=== PATIENT | female | born 1995 ===

== ENCOUNTER 2016-07-24 03:38 | Inpatient (IN) | payer MEDICAID ==
[~2016-07-24] VITALS: Ht 157.5 cm; Wt 62.4 kg
[2016-07-24] VITALS (7 sets, daily range): BP systolic 101–132; BP diastolic 55–95; PULSE 85–153; RESP 15–24; O2SAT 97–100
[~2016-07-24 03:38] MED LIST: INSU100V7 SUBQ; LEVO1TAB66 PO; METO10TA3 PO; NOV100I SUBQ
--- NOTE | 2016-07-24 03:57 | ED.REPORT ---
HPI-General Illness Date of Service Jul 24, 2016 ED Provider: Nicanor Glez MD A 20 year old female with a history of type 1 diabetes, DKA, and depression presents to the ED due to vomiting, abdominal pain, and productive cough. The pt has been feeling ill for two days. She was fatigued two days ago and began vomiting frequently at 13:00 yesterday. She has been unable to eat or drink a significant amount in the last two days and has not taken her Lantus tonight. Nursing Notes Stated Complaint: VOMITING Chief Complaint: FLU/Cold Symptoms Nursing Notes Reviewed: Yes Allergies: Coded Allergies: lactose (Verified Adverse Reaction, Intermediate, 02/13/16) Scheduled Insulin Aspart (NovoLOG U100 Insulin Vial) 100 Unit/Ml Mdv 15-20 UNIT SUBQ TIDAC Insulin Glargine (Lantus U100 Insulin Vial) 100 Unit/Ml Vial 43 UNIT SUBQ QPM Levonorgestrel/Ethinyl Estradiol (Orsythia) 1 Each Tablet 1 TABLET PO DAILY Scheduled PRN Metoclopramide (Metoclopramide) 10 Mg Tablet 10 MG PO QID PRN PRN For Nausea/ Vomiting General Time Seen by MD: 03:57 Chief Complaint Vomiting Hx Obtained From: Patient Arrived By: Walk-in Sudden in Onset?: No Onset Occurred: 2 days ago Symptom Duration: Since onset Recent Healthcare: Recent doctor visit, Recent hospitalization Similar Sx Previous: No Past Medical History Past Medical History dx at 9 years old History of DKA Reports: Diabetes mellitus Reports: Depression Past Surgical History knee surgery Smoking History Unknown if Ever Smoker Social History Alcohol Use: "Social" Drug Use: THC Occupation moved in with cousin. goes to [employer]. lives 1 block away Ambulatory Status Independent Review of Systems decreased food and fluid intake Full Review of Systems Constitutional: Reports: Fatigue Respiratory: Reports: Prod cough, clear GI: Reports: Abdominal pain, Nausea, Vomiting Musculoskeletal: Denies: Back pain, Neck pain Skin: Denies Rash Complete sys rev & neg: except as marked. Physical Exam Vital Signs Vital Signs Date Time Temp Pulse Resp B/P Pulse Ox O2 Delivery O2 Flow Rate FiO2 07/24/16 06:30 36.8 85 18 127/83 97 Room Air 07/24/16 03:45 36.2 153 20 132/95 98 Room Air Initial VS: Reviewed General/Constitutional: Awake, Alert Head / Eyes: Atraumatic, Normocephalic, PERRL, EOMI ENT: Atraumatic, Airway patent Mouth: Positive: Mucous membranes dry Neck: Atraumatic, Supple, Full range of motion Respiratory / Chest: Atraumatic, Breath sounds NL, Breath sounds = bilat breathing deeply tachypneic Cardiovascular: Regular rhythm, Heart sounds NL Heart Rate / Rhythm: Positive: Tachycardia Abdomen: Atraumatic, Soft, Non-tender Back: Atraumatic, Full range of motion Upper Extremities Upper Extremity / MS: Atraumatic, Full range of motion Lower Extremity / Pelvis / MS: Atraumatic, Full range of motion Skin: Atraumatic, Color NL, No rash, Warm, Dry Neurologic: Oriented X3, Speech NL, No motor deficits, No sensory deficits Psychiatric: Affect NL, Mood NL Interpretation & Diagnostics Lab Results Interpretation Result Diagram: 07/24/160 07/24/16 0450 Test 07/24/16 04:50 07/24/16 05:25 White Blood Count 11.1th/mm3 (3.8-10.1) Red Blood Count 5.74mil/mm3 (3.90-5.20) Hemoglobin 17.9g/dL (12.0-15.6) Hematocrit 49.8% (35.0-46.0) Mean Corpuscular Volume 86.8fL (81-100) Mean Corpuscular Hemoglobin 31.2pg (27.0-35.0) Mean Corpuscular Hemoglobin Concent 35.9% (32.0-37.0) Red Cell Distribution Width 12.6% (12.3-15.4) Platelet Count 465bil/L (150-400) Neutrophils (%) (Auto) 71.0% (40-74) Lymphocytes (%) (Auto) 17.5% (14-46) Monocytes (%) (Auto) 9.6% (4-12) Eosinophils (%) (Auto) 0.3% (0-5) Basophils (%) (Auto) 1.1% (0-3) Prothrombin Time 10.5sec (8.1-12.5) Prothromb Time International Ratio 0.98ratio Sodium Level 136mEq/L (134-144) Potassium Level 3.6mEq/L (3.5-5.2) Chloride Level 90mEq/L (97-108) Carbon Dioxide Level 15mmol/L (18-29) Blood Urea Nitrogen 13mg/dL (6-20) Creatinine 0.68mg/dL (0.57-1.00) Estimat Glomerular Filtration Rate 160mL/min (>59) Glucose Level 196mg/dL (60-99) Lactic Acid Level 8.8mmol/L (0.4-2.0) Calcium Level 11.2mg/dL (8.5-10.1) Magnesium Level 1.8mg/dL (1.6-2.6) Total Bilirubin 1.8mg/dL (0.0-1.2) Aspartate Amino Transf (AST/SGOT) 400U/L (0-50) Alanine Aminotransferase (ALT/SGPT) 233U/L (0-32) Alkaline Phosphatase 192U/L (25-150) Total Protein 7.8g/dL (6.4-8.4) Albumin 4.5g/dL (3.4-5.0) Lipase 10U/L (13-60) Ketones Negative (Negative) Hold Means Top Tube Received (Received) Re-Eval/Medical Decision Med Decision/Clinical Course 20-year-old type I diabetic with history of DKA presents with two days of vomiting and dehydration. She has a elevated lactate but not ketones at this point. She is nevertheless fairly acidotic and metabolically deranged, perhaps partly compensated by her continued use of insulin until last night. She has responded clinically to 3 L of fluid IV over the past three hours, and is received a small dose of regular insulin with ongoing sugar monitoring. She will require admission for continued hydration and reestablishment of by mouth intake. Admitted to PCU. Does not require an insulin drip at this point. Hemodynamically stable, with tachycardia now resolved and blood pressure stable. Source of Hx: Old records Counseled Regarding: Diagnosis, Lab results, Need for follow-up, When/why to return to ED Discharge & Departure Primary Impression: DKA (diabetic ketoacidoses) Additional Impressions: Tachycardia Dehydration Vomiting Disposition: Home Discharge Condition All VS Reviewed: Yes Condition: Stable Referrals: [facility] Scribe Attestation Portions of this note were transcribed by Bushra Muñiz. I, Dr. Glez personally performed the history, physical exam and medical decision-making; I reviewed and confirmed the accuracy of the information in the transcribed note. Signed by: Annette Bhatia, 07/24/2016 and 0419. copies to: [facility] Nicanor Glez MD Jul 24, 2016 03:57 BUSHRA MUÑIZ Jul 24, 2016 04:14
[2016-07-24] MEDS ORDERED: 0.9% Sodium Chloride 1,000 ML IV ONE ×2 (04:13→05:55)
[2016-07-24] MEDS ORDERED: 0.9% Sodium Chloride 1,000 ML IV SCH (04:15)
[2016-07-24] MEDS ORDERED: Pantoprazole 4 mg/mL 10 mL Inj IVPUSH ONE (04:15)
[2016-07-24] MEDS ORDERED: Ondansetron 2 mg/mL 2 mL Inj IVPUSH ONE (04:15)
[2016-07-24 05:00] LABS: BASOPHILS % (AUTO) 1.1 % (0-3); EOSINOPHILS % (AUTO) 0.3 % (0-5); MONOCYTES % (AUTO) 9.6 % (4-12); Mean Corpuscular Hemoglobin 31.2 pg (27.0-35.0); Mean Corpuscular Volume 86.8 fL (81-100); Platelet Count 465 bil/L (150-400)
[2016-07-24 05:15] LABS: INR 0.98 ratio
[2016-07-24 05:20] LABS: Lipase 10 U/L (13-60); Magnesium 1.8 mg/dL (1.6-2.6)
[2016-07-24] MEDS ORDERED: Insulin Human REGular 300 Unit/3 mL Inj IV SCH (05:55)
[2016-07-24] MEDS ORDERED: Insulin Human REGular-Omnicell 100 Unit/mL ONE (06:42)
[2016-07-24] MEDS ORDERED: Ondansetron 2 mg/mL 2 mL Inj IVPUSH PRN ×2 (08:10→10:25)
[2016-07-24] MEDS ORDERED: Alum-Mag Hydrox-Simeth 30 mL Suspension PO PRN ×2 (08:10→10:25)
--- NOTE | 2016-07-24 08:12 | ABG ---
DateTimeAnalyzed 08:09:00 -_ pH ____7.365 - pCO2 ___35.1__ -mmHg pO2 ___47.7__ -mmHg HCO3- ___19.6__ -mmol/L ABE ___-4.5__ -mmol/L tHb ___14.5__ -g/dL O2Hb ___82.5__ -% COHb ____1.6__ -% MetHb ____0.7__ -% sO2 ___84.4__ -% FIO2 ___21.0__ -% Drawn By jmw - Date/Time Notified____ 08:11:00 -_ Notified By JMW - Notified Whom DR SINCLAIR - B 748 -mmHg tO2 ___16.7__ -Vol% OrderingPhysicianInitials CR - David test N/A -
[2016-07-24] MEDS: 0.9% Sodium Chloride 1,000 ML IV SCH ×6 (08:21→15:04)
[2016-07-24] MEDS ORDERED: CALC-962 PO (09:35)
--- NOTE | 2016-07-24 09:43 | NUR ---
Admit: Pt admitted with ongoing nausea and vomiting, type 1 diabetic. Reports slight lactose intolerance, "It's only bad if I eat a lot of milk or cheese." Admit completed, med rec completed, allergy sticker in place.
[2016-07-24] MEDS ORDERED: Polyethylene Glycol (PEG) 17 Gm Powder PO PRN (10:25)
[2016-07-24] MEDS ORDERED: Glucose 40% Oral Gel 15 Gm Tube PO PRN (10:25)
[2016-07-24 10:50] LABS: APPEARANCE,URINE CLEAR (CLEAR,HAZY); COLOR,URINE YELLOW (YELLOW); OCCULT BLOOD,URINE SMALL (NEGATIVE)
[2016-07-24 10:51] LABS: UROBILINOGEN,URINE NORMAL (NORMAL)
[2016-07-24] MEDS: Heparin 5,000 Unit/mL Inj SUBQ SCH ×2 (10:57→16:57)
--- NOTE | 2016-07-24 12:05 | PCM.HPMED ---
Subjective Date of Service Jul 24, 2016 Primary Provider: Admitting Physician: David Castellanos MD Primary Care Physician: Ivon Vidales [place] Attending Physician: David Castellanos MD Admit Status: From the Emergency Department, Full Admit, Admit to [facility], [facility] Telemetry Chief Complaint: Depletion nausea vomiting. Lactic acidosis. History of Present Illness: This is a 20-year-old female with a history of diabetes mellitus 1. She has been ill for about 3 days with nausea vomiting but no diarrhea. She has had a slight decrease in the frequency of vomiting and denies any hematemesis. Some abdominal pain and some substernal burning. Again no diarrhea. No abdominal distention or sustained abdominal pain. As a consequence she has had a dramatic decrease in the amount that she has been taking in. She has cats currently decrease the amount of insulin she has been using, stimuli. She presented the activity of progressive weakness, lightheadedness, and being thirsty. There she was found to have evidence of severe find depletion as well as a lactic acidosis and mild hyperglycemia. Her ketones however are negative. Her liver function tests are elevated primarily a transaminitis with a mild hypermobility. She has no known history of liver disease and ultrasound dated reveal evidence of steatohepatitis. She notes she has had a transient elevation of liver functions in the past but no history of gallstones or gallbladder problems. She denies alcohol ingestion. Review of Systems: No headache, visual changes, difficulty hearing. He has she has had some rhinorrhea. Minimal cough. No fevers chills or dyspnea. No rectal bleeding she has decreased her urine output and with a slight change in color of the urine. No hematuria. No flank pain or fevers or chills. Also reviewed and otherwise negative except as noted on the H&P Allergies Coded Allergies: lactose (Verified Adverse Reaction, Intermediate, 02/13/16) Home Medications Scheduled Insulin Aspart (NovoLOG U100 Insulin Vial) 100 Unit/Ml Mdv 15-20 UNIT SUBQ TIDAC Insulin Glargine (Lantus U100 Insulin Vial) 100 Unit/Ml Vial 43 UNIT SUBQ QPM Levonorgestrel/Ethinyl Estradiol (Orsythia) 1 Each Tablet 1 TABLET PO DAILY Scheduled PRN Metoclopramide (Metoclopramide) 10 Mg Tablet 10 MG PO QID PRN PRN For Nausea/ Vomiting PMH 1. DM 1. 2. Transient elevation of liver function tests. Surgical History None Family History Positive for DM 1 Social History Hx Alcohol Use: No Hx Substance Use: Yes (occ marijuana use) Smoking Status: Unknown if Ever Smoker Living Arrangement: Alone Exam Vital Signs Vital Sign - Last Date Time Temp Pulse Resp B/P Pulse Ox O2 Delivery O2 Flow Rate FiO2 07/24/16 09:10 106 07/24/16 08:58 37.0 16 120/89 100 Room Air Intake and Output 07/23/16 07/23/16 07/24/16 Cumulative From/Thru 15:00 23:00 07:00 07/24/16 03:45 - 07/24/16 05:48 Intake Total 3000 ml 3000 ml Balance 3000 ml 3000 ml Intake IV Total 3000 ml 3000 ml Exam Alert oriented 3, no distress. Fluent speech. Normal scalp. Normal nose and ears Anicteric sclera, conjugate gaze Neck supple with normal thyroid and no adenopathy. Lungs are clear with normal effort and rate Heart is regular without murmur gallop or rub. Abdomen is soft and nontender Extremities are free of edema Good radial and pedal pulses. Skin is free of rash, lesions or petechiae. Joints are not swollen or deformed Cranial nerves are intact Motor strength is normal throughout extremities. Normal affect Lab and Diagnostics Result Diagram: 07/24/16 0450 07/24/16 0450 X-Rays, CTs and MRIs Right upper quadrant ultrasound is normal except for steatohepatitis Chest x-ray is clear. Assessment & Plan 1. Severe volume depletion, POA. We will resuscitate her with saline at 250 mils per hour. 2. Lactic acidosis, POA. We will follow serial lactic acid with fluid repletion. 3. DM 1, with mild hyperglycemia. POA. We will fluid resuscitate and use correctional lispro 4. Abnormal liver function tests, POA. We will add a hepatitis C panel and follow these closely. The patient will be admitted to inpatient status for profound Depletion and lactic acidosis and we will expect her to be in hospital for over 2 nights. She is full resuscitation. Pain Evaluation: Adequate Pain Control Resuscitation Status: CPR: Attempt Resuscitation Time spent 45 min David Castellanos MD Jul 24, 2016 12:05
[2016-07-24] MEDS: Insulin LISPRO 300 Unit/3 mL Inj SUBQ SCH ×3 (12:17→21:40)
--- NOTE | 2016-07-24 18:33 | NUR ---
Arrived to unit/Joint pain/Insulin Pt arrived to PCC room 2025 from ED at ~0900 this am. Pt reporting intermittent substernal ache which she reports started prior to admit with vomiting and worsened during vomiting, MD made aware, Pt reported as tolerable. Pt sinus tach in the 100s/110s per information technology analyst. When lactic acid f/u result came back at 1.1, MD notified who slowed NS rate from 250 down to 100mL/Hr, Pt taking PO fluids well. Pt reported bilateral knee/ankle pain after ambulating to the BR, Pt reported as tolerable and resolving once back in bed, MD made aware who instructed to monitor at this time. Pt reports dosing prandial insulin based upon carb counting, spoke with MD, communication order placed allowing Pt to dose own prandial insulin up to 12units, Pt resumed diet, premeal blood sugar for lunch 294, Pt given 15 total insulin lispro units at this time. Pt's premeal blood sugar prior to dinner 463, Pt asymptomatic, Pt given another 15units insulin lispro, Pt reported not having usual insulin glargine HS dose last night, made aware, verbal order written to resume Pt's QHS 43 units insulin glargine dose and Pt's self dosing insulin lispro dose range increased to 14units for subsequent meals.
[2016-07-24] MEDS ORDERED: Insulin GLARgine 100 Unit/mL Syringe SUBQ SCH (20:00)
[2016-07-25] MEDS: Heparin 5,000 Unit/mL Inj SUBQ SCH ×2 (00:10→07:36)
[2016-07-25] MEDS: 0.9% Sodium Chloride 1,000 ML IV SCH ×2 (00:10→09:43)
[2016-07-25 04:17] LABS: EOSINOPHILS % (AUTO) 4.3 % (0-5); MONOCYTES % (AUTO) 8.4 % (4-12); Mean Corpuscular Hemoglobin 31.3 pg (27.0-35.0); Mean Corpuscular Volume 89.4 fL (81-100); NEUTROPHILS % (AUTO) 38.6 % (40-74); Platelet Count 290 bil/L (150-400)
[2016-07-25 04:20] VITALS: BP 103/66; PULSE 95; RESP 16; O2SAT 99
[2016-07-25 04:51] VITALS: PULSE 95
--- NOTE | 2016-07-25 05:01 | NUR ---
Activity/Pain/Blood Sugar Patient independent in the room. Asleep most of the shift, but up to bathroom several times without difficulty or pain. Denies pain. HS blood sugar 210; 1 unit of humalog given per sliding scale along with patient's lantus. Continue to monitor.
[2016-07-25 06:08] LABS: Hepatitis A Antibody IgM Negative (Negative); Hepatitis B Core Antibody IgM Negative (Negative)
[2016-07-25 07:07] LABS: Hemoglobin A1C 11.2 % (4.8-5.6)
[2016-07-25 07:32] VITALS: BP 119/86; PULSE 92; RESP 16; O2SAT 100
[2016-07-25] MEDS: Insulin LISPRO 300 Unit/3 mL Inj SUBQ SCH ×4 (08:28→17:38)
[2016-07-25 09:58] VITALS: PULSE 104
[2016-07-25] MEDS ORDERED: Potassium Chloride 20 mEq SR Tablet PO ONE (10:05)
[2016-07-25 12:00] VITALS: BP 126/85; PULSE 109; RESP 15; O2SAT 100
--- NOTE | 2016-07-25 15:34 | NUR ---
Social Work Note: Screen Note Data& Assessment: EMR reviewed. Patient is a 20 year old female admitted on 07/24/16 for Type one diabetes and Lactic Acidosis. Pt has [facility] for insurance coverage and goes to [facility] for primary care. Pt lives in [place] alone and is independent at baseline. Pt is currently independent in her room. No discharge needs identified at this time. SW to continue to follow if any needs arise. Plan: Anticipated discharge home via POV when medically ready. No discharge needs identified at this time. SW to continue to follow if any needs arise. Sahra Holden, KRISTIN, ACM
[2016-07-25 16:34] VITALS: BP 130/85; PULSE 112; RESP 16; O2SAT 100
--- NOTE | 2016-07-25 16:52 | PCM.DIMED ---
Discharge Instructions Date of Service Jul 25, 2016 Dates of Hospitalization Jul 24, 2016 at 08:20 Discharge Diagnosis Discharge Diagnosis 1. Severe volume depletion,Improved 2. Lactic acidosis, POA. Resolved. 3. DM 1, with mild hyperglycemia. POA. Improved 4. Abnormal liver function tests, POA. Stable 5. Metabolic acidosis, POA. Improving. Diet Diabetic Activity Limited until seen by PCP Call your provider Fever or Chills, Shortness of breath, Vomitting Patient Instructions Please see Dr Lucía Au at [place] in the next 3 days. Please increase the amounts of Humalog that you use by about 10-15% and add an additional 10-15 units of Lantus in the morning. Hydrate yourself with a lot of water and/or electrolyte fluids. David Castellanos MD Jul 25, 2016 16:52
--- NOTE | 2016-07-25 16:57 | PCM.DC.MED ---
Discharge Summary Date of Service Jul 25, 2016 Dates of Hospitalization Date of Hospital Admission Jul 24, 2016 at 08:20 Date of Discharge: Jul 25, 2016 Providers: Admitting Physician: David Castellanos MD Primary Care Physician: Ivon Vidales Attending Physician: David Castellanos MD Diagnosis at Time of Discharge Diagnosis at Time of Discharge 1. Severe volume depletion,Improved 2. Lactic acidosis, POA. Resolved. 3. DM 1, with mild hyperglycemia. POA. Improved 4. Abnormal liver function tests, POA. Stable 5. Metabolic acidosis, POA. Improving. Consultations None Procedures XRay, CTs & MRIs Right upper quadrant ultrasound is normal except for steatohepatitis Chest x-ray is clear. Cardiac Echo Impression None Invasive Procedures None Brief History This is a 20-year-old female with a history of diabetes mellitus 1. She has been ill for about 3 days with nausea vomiting but no diarrhea. She has had a slight decrease in the frequency of vomiting and denies any hematemesis. Some abdominal pain and some substernal burning. Again no diarrhea. No abdominal distention or sustained abdominal pain. As a consequence she has had a dramatic decrease in the amount that she has been taking in. She has cats currently decrease the amount of insulin she has been using, stimuli. She presented the activity of progressive weakness, lightheadedness, and being thirsty. There she was found to have evidence of severe find depletion as well as a lactic acidosis and mild hyperglycemia. Her ketones however are negative. Her liver function tests are elevated primarily a transaminitis with a mild hypermobility. She has no known history of liver disease and ultrasound dated reveal evidence of steatohepatitis. She notes she has had a transient elevation of liver functions in the past but no history of gallstones or gallbladder problems. She denies alcohol ingestion. Hospital Course 1. Severe volume depletion, POA. We will resuscitate her with saline at 250 mils per hour. 2. Lactic acidosis, POA. We will follow serial lactic acid with fluid repletion. 3. DM 1, with mild hyperglycemia. POA. We will fluid resuscitate and use correctional lispro 4. Abnormal liver function tests, POA. We will add a hepatitis C panel and follow these closely. The patient will be admitted to inpatient status for profound Depletion and lactic acidosis and we will expect her to be in hospital for over 2 nights. She is full resuscitation. Hospital course. This is a type I diabetic with poorly controlled diabetes and A1c of about 11.5. She presented with profound volume depletion and a metabolic acidosis with negative ketones and a positive lactic acid she was volume repleted. There is no evidence of infection. She was only mildly hyperglycemic at the time of admission. She did not require an insulin drip. Clinically she resolved her lactic acidosis and improved. She had a fair amount of nausea but no diarrhea. All of these symptoms resolved and she was able to advance her diet. She did have a persistent metabolic acidosis based on her BMP. On the day of discharge she felt very well and her mother had driven up from the [facility] to retrieve her. They were very adamant about discharge home and she agreed to increase the amount of insulin she takes by about 10-15% both with prolonged and short acting insulin as well as to vigorously hydrate. She also agreed to close follow-up. Exam Vital Signs (Last) Date Time Temp Pulse Resp B/P Pulse Ox O2 Delivery O2 Flow Rate FiO2 07/25/16 16:34 36.9 112 16 130/85 100 Room Air Exam She seen and examined on day of discharge Test 07/24/16 04:50 07/24/16 05:25 07/24/16 09:00 07/24/16 10:25 Prothrombin Time 10.5sec (8.1-12.5) Prothromb Time International Ratio 0.98ratio Magnesium Level 1.8mg/dL (1.6-2.6) Lipase 10U/L (13-60) Ketones Negative (Negative) Hold Means Top Tube Received (Received) Urine Color Yellow (YELLOW) Urine Appearance Clear (CLEAR,HAZY) Urine pH 6.0 (5.0-8.0) Urine Specific Bricelyn 1.025 (1.003-1.035) Urine Protein 30mg/dL (NEG,TRACE) Urine Glucose (UA) 500mg/dL (NEGATIVE) Urine Ketones 80mg/dL (NEGATIVE) Urine Occult Blood Small (NEGATIVE) Urine Nitrite Negative (NEGATIVE) Urine Bilirubin Negative (NEGATIVE) Urine Urobilinogen Normalmg/dL (NORMAL) Urine Leukocyte Esterase Negative (NEGATIVE) Urine RBC 0-2/hpf (0-2) Urine WBC 0-5/hpf (0-5) Urine Epithelial Cells Few/hpf (NONE-MOD) Urine Crystals None seen (NONE SEEN) Urine Bacteria None/hpf (NONE-FEW) Urine Hyaline Casts None/lpf (NONE) Urine Granular Casts 5-20 (NONE SEEN) Urine Waxy Casts None seen (NONE SEEN) Urine Red Blood Cell Casts None seen (NONE SEEN) Urine White Blood Cell Casts None seen (NONE SEEN) Urine Mucus None seen (None Seen) Urine Trichomonas None seen (NONE SEEN) Urine Yeast None (NONE SEEN) Urinalysis Comment None Urine Culture Reflexed Not indicated Urine HCG, Qualitative Negative (Negative) Test 07/24/16 12:15 07/25/16 03:50 07/25/16 15:55 Hemoglobin A1c 11.2% (4.8-5.6) Lactic Acid Level 1.1mmol/L (0.4-2.0) Hepatitis A IgM Antibody Negative (Negative) Hepatitis B Surface Antigen Negative (Negative) Hepatitis B Core IgM Antibody Negative (Negative) Hepatitis C Antibody <0.1s/co ratio (0.0-0.9) Hepatitis C Comment Comment (.) White Blood Count 5.4th/mm3 (3.8-10.1) Red Blood Count 4.06mil/mm3 (3.90-5.20) Hemoglobin 12.7g/dL (12.0-15.6) Hematocrit 36.3% (35.0-46.0) Mean Corpuscular Volume 89.4fL (81-100) Mean Corpuscular Hemoglobin 31.3pg (27.0-35.0) Mean Corpuscular Hemoglobin Concent 35.0% (32.0-37.0) Red Cell Distribution Width 12.6% (12.3-15.4) Platelet Count 290bil/L (150-400) Neutrophils (%) (Auto) 38.6% (40-74) Lymphocytes (%) (Auto) 46.1% (14-46) Monocytes (%) (Auto) 8.4% (4-12) Eosinophils (%) (Auto) 4.3% (0-5) Basophils (%) (Auto) 2.0% (0-3) Sodium Level 136mEq/L (134-144) Potassium Level 3.5mEq/L (3.5-5.2) Chloride Level 94mEq/L (97-108) Carbon Dioxide Level 16mmol/L (18-29) Blood Urea Nitrogen 3mg/dL (6-20) Creatinine 0.42mg/dL (0.57-1.00) Estimat Glomerular Filtration Rate 278mL/min (>59) Glucose Level 288mg/dL (60-99) Calcium Level 8.0mg/dL (8.5-10.1) Total Bilirubin 0.6mg/dL (0.0-1.2) Aspartate Amino Transf (AST/SGOT) 560U/L (0-50) Alanine Aminotransferase (ALT/SGPT) 227U/L (0-32) Alkaline Phosphatase 198U/L (25-150) C-Reactive Protein 0.1mg/dL (0.0-0.5) Total Protein 6.1g/dL (6.4-8.4) Albumin 3.5g/dL (3.4-5.0) Discharge Medications Discharge Medications Insulin Aspart (NovoLOG U100 Insulin Vial) 100 Unit/Ml Mdv 15-20 UNIT SUBQ TIDAC Prescribed by: EL ORR MD Insulin Glargine (Lantus U100 Insulin Vial) 100 Unit/Ml Vial 43 UNIT SUBQ QPM ( Reported) As needed Calcium Carbonate/Simethicone (Laura-Mulvane Heartburn+Gas) 750 Mg-80 Mg Tab.chew 1 EACH PO BID PRN PRN For Epigastric Distress (Reported) Metoclopramide (Metoclopramide) 10 Mg Tablet 10 MG PO QID PRN PRN For Nausea/ Vomiting (Reported) Followup Plan Disposition: Home Discharge Diet: Diabetic Discharge Activity: Limited until seen by PCP Patient Instructions Please see Dr Lucía Au at [place] in the next 3 days. Please increase the amounts of Humalog that you use by about 10-15% and add an additional 10-15 units of Lantus in the morning. Hydrate yourself with a lot of water and/or electrolyte fluids. Time spent 40 minutes David Castellanos MD Jul 25, 2016 16:57
--- NOTE | 2016-07-25 18:07 | NUR ---
Discharge Pt very eager to discharge home, Pt discharged home with family at ~1730 after discussing discharge/post-discharge plan with Dr. Castellanos. Pt given discharge educational materials on DKA, lactic acidosis, and dehydration. Pt's IV access D/C'd and intact. Pt instructed to f/u with PCP in the next 3 days. Pt requested blood sugar check prior to discharge and just insulin coverage based upon our sliding scale as Pt unsure of when or how many carbs she would have for dinner. Pt and family verbalized understanding of all discharge instructions. All belongings accompanied Pt at time of discharge.
== END 2016-07-25 17:00 | disposition home or self-care (01) | DRG 641 ==
LOC: SED 03:38 → PCC 08:20
PROVIDERS: ADMIT Hospitalist; ATTEND Hospitalist
DX: E86.0 Dehydration (principal); E10.65 Type 1 diabetes mellitus with hyperglycemia; I10 Essential (primary) hypertension; R74.0 Nonspecific elevation of levels of transaminase and lactic acid dehydrogenase [LDH]; Z79.4 Long term (current) use of insulin

== ENCOUNTER 2016-09-20 04:47 | Inpatient (IN) | payer MEDICAID ==
[2016-09-20] VITALS (12 sets, daily range): BP systolic 109–137; BP diastolic 20–91; PULSE 103–130; RESP 15–28; O2SAT 98–100
[~2016-09-20] VITALS: Ht 157.5 cm; Wt 70.9 kg
[~2016-09-20 04:47] MED LIST changes: +CALC-962 PO; -LEVO1TAB66 PO
[2016-09-20] MEDS ORDERED: 0.9% Sodium Chloride 1,000 ML IV ONE ×2 (05:23→08:00)
[2016-09-20] MEDS ORDERED: Ondansetron 2 mg/mL 2 mL Inj IVPUSH ONE (05:25)
[2016-09-20] MEDS ORDERED: Insulin Human REGular-Omnicell 100 Unit/mL IV ONE (05:25)
[2016-09-20 05:29] LABS: BASOPHILS % (AUTO) 1.7 % (0-3); EOSINOPHILS % (AUTO) 1.6 % (0-5); MONOCYTES % (AUTO) 6.9 % (4-12); Mean Corpuscular Hemoglobin 30.3 pg (27.0-35.0); Mean Corpuscular Volume 91.5 fL (81-100); NEUTROPHILS % (AUTO) 72.5 % (40-74); Platelet Count 467 bil/L (150-400)
[2016-09-20 05:38] LABS: INR 0.9 ratio
[2016-09-20 05:40] LABS: APPEARANCE,URINE CLEAR (CLEAR,HAZY); COLOR,URINE STRAW (YELLOW); OCCULT BLOOD,URINE NEGATIVE (NEGATIVE); UROBILINOGEN,URINE NORMAL (NORMAL)
[2016-09-20 05:59] LABS: Lipase 21 U/L (13-60); Magnesium 2.1 mg/dL (1.6-2.6)
--- NOTE | 2016-09-20 06:06 | ED.REPORT ---
HPI-General Illness Date of Service September 20, 2016 ED Provider: Kimberly Aguilera MD The patient is a 20 year old female w/ a hx of DM type 1 and DKA who presents to the ED due to high blood sugar. She ran out of Lantus at breakfast this morning. Her blood sugars have been running high all week. Her blood sugar at the ED is 941 and blood pH is 7.1. She started a second job this week and hasn' t been able to monitor her blood sugar and insulin as effectively. Pt also reports a sinus infection for the last 3 days. She is unsure if she took her Lantus last night. The pt was last seen at the ED 07/24/16 for similar symptoms. Nursing Notes Stated Complaint: BLOOD SUGAR HIGH/ OUT OF MEDS Chief Complaint: General Complaint Nursing Notes Reviewed: Yes Allergies: Coded Allergies: lactose (Verified Adverse Reaction, Intermediate, 02/13/16) Scheduled Insulin Aspart (NovoLOG U100 Insulin Vial) 100 Unit/Ml Mdv 15-20 UNIT SUBQ TIDAC Insulin Glargine (Lantus U100 Insulin Vial) 100 Unit/Ml Vial 43 UNIT SUBQ QPM Scheduled PRN Calcium Carbonate/Simethicone ([place] Heartburn+Gas) 750 Mg-80 Mg Tab.chew 1 EACH PO BID PRN PRN For Epigastric Distress Metoclopramide (Metoclopramide) 10 Mg Tablet 10 MG PO QID PRN PRN For Nausea/ Vomiting General Time Seen by MD: 06:01 Chief Complaint Other (high blood sugar) Hx Obtained From: Patient Arrived By: Walk-in Sudden in Onset?: Yes Onset Occurred: Just prior to arrival Symptom Duration: Since onset Recent Healthcare: No recent doctor visit, No recent hospitalization Similar Sx Previous: Yes Past Medical History Past Medical History dx at 9 years old History of DKA Reports: Diabetes mellitus Reports: Depression Past Surgical History knee surgery Smoking History Former Smoker Social History Alcohol Use: "Social" Drug Use: THC Other Social History: Good social support, Local resident Occupation moved in with cousin. goes to [employer]. lives 1 [address] away Ambulatory Status Independent Review of Systems high blood sugar Full Review of Systems Ears / Nose / Throat: Reports: Nasal congestion, Sinus problem GI: Reports: Nausea Psychiatric: Reports: Anxiety, Stress Complete sys rev & neg: except as marked. Physical Exam Vital Signs Vital Signs Date Time Temp Pulse Resp B/P Pulse Ox O2 Delivery O2 Flow Rate FiO2 09/20/16 10:50 120 20 125/72 100 Room Air 09/20/16 09:55 130 21 135/20 100 Room Air 09/20/16 08:33 122 21 120/62 99 Room Air 09/20/16 07:15 130 25 137/79 100 Room Air 09/20/16 05:26 125 28 133/68 100 Room Air 09/20/16 04:51 36.0 130 24 126/87 100 Room Air Initial VS: Reviewed Abdomen / GI: Soft, Non-tender, No guarding, No rebound, No distention Back: No CVA tenderness Extremities: Vascular intact, Neuro intact, No swelling, No tenderness Skin: Warm, Dry Neurologic: Alert, Oriented General/Constitutional: Awake, Alert, Cooperative acutely ill Head / Eyes: Normocephalic injected sclera Mouth: Positive: Mucous membranes dry Respiratory / Chest: Breath sounds NL, No rales, No rhonchi, No wheezing kussmaul breathing Heart Rate / Rhythm: Positive: Tachycardia Interpretation & Diagnostics Lab Results Interpretation Result Diagram: 09/20/16 0515 09/20/16 1040 Test 09/20/16 05:15 09/20/16 10:40 White Blood Count 11.2th/mm3 (3.8-10.1) Red Blood Count 5.31mil/mm3 (3.90-5.20) Hemoglobin 16.1g/dL (12.0-15.6) Hematocrit 48.6% (35.0-46.0) Mean Corpuscular Volume 91.5fL (81-100) Mean Corpuscular Hemoglobin 30.3pg (27.0-35.0) Mean Corpuscular Hemoglobin Concent 33.1% (32.0-37.0) Red Cell Distribution Width 12.8% (12.3-15.4) Platelet Count 467bil/L (150-400) Neutrophils (%) (Auto) 72.5% (40-74) Lymphocytes (%) (Auto) 17.0% (14-46) Monocytes (%) (Auto) 6.9% (4-12) Eosinophils (%) (Auto) 1.6% (0-5) Basophils (%) (Auto) 1.7% (0-3) Prothrombin Time 9.6sec (8.1-12.5) Prothromb Time International Ratio 0.90ratio Urine Color Straw (YELLOW) Urine Appearance Clear (CLEAR,HAZY) Urine pH 5.0 (5.0-8.0) Urine Specific [place] 1.010 (1.003-1.035) Urine Protein Negativemg/dL (NEG,TRACE) Urine Glucose (UA) >1000mg/dL (NEGATIVE) Urine Ketones >80mg/dL (NEGATIVE) Urine Occult Blood Negative (NEGATIVE) Urine Nitrite Negative (NEGATIVE) Urine Bilirubin Negative (NEGATIVE) Urine Urobilinogen Normalmg/dL (NORMAL) Urine Leukocyte Esterase Negative (NEGATIVE) Urine RBC 0-2/hpf (0-2) Urine WBC 0-5/hpf (0-5) Urine Epithelial Cells Few/hpf (NONE-MOD) Urine Crystals None seen (NONE SEEN) Urine Bacteria Few/hpf (NONE-FEW) Urine Hyaline Casts None/lpf (NONE) Urine Granular Casts None seen (NONE SEEN) Urine Waxy Casts None seen (NONE SEEN) Urine Red Blood Cell Casts None seen (NONE SEEN) Urine White Blood Cell Casts None seen (NONE SEEN) Urine Mucus Present (None Seen) Urine Trichomonas None seen (NONE SEEN) Urine Yeast None (NONE SEEN) Urinalysis Comment None Urine Culture Reflexed Not indicated Hold Urine Received (Received) Lactic Acid Level 1.7mmol/L (0.4-2.0) Magnesium Level 2.1mg/dL (1.6-2.6) Total Bilirubin 1.9mg/dL (0.0-1.2) Aspartate Amino Transf (AST/SGOT) 183U/L (0-50) Alanine Aminotransferase (ALT/SGPT) 110U/L (0-32) Alkaline Phosphatase 291U/L (25-150) Total Protein 8.3g/dL (6.4-8.4) Albumin 4.4g/dL (3.4-5.0) Lipase 21U/L (13-60) Ketones Positive (Negative) Sodium Level 141mEq/L (134-144) Potassium Level 3.4mEq/L (3.5-5.2) Chloride Level 101mEq/L (97-108) Carbon Dioxide Level 7mmol/L (18-29) Blood Urea Nitrogen 9mg/dL (6-20) Creatinine 0.68mg/dL (0.57-1.00) Estimat Glomerular Filtration Rate 160mL/min (>59) Glucose Level 230mg/dL (60-99) Calcium Level 7.0mg/dL (8.5-10.1) Lab Results Interpretation: pH...7.155 pCO2...13 pO2...132.0 cHOC3...4.4 cBase...-23.8 ECG Interpretation ECG Interpretation: nonspecific T abnormalities Time: 06:00 Interpreted by: ED physician Rhythm / Conduction: Tachycardia (rate 134) Re-Eval/Medical Decision Time of Eval: 07:15 Re-Evaluation/Progress Note: Per nurse, pt's blood sugar is 551. Time of Eval: 11:43 Patient Status: Condition improved Re-Evaluation/Progress Note: Patient remains in the department for staffing purposes. Repeat BMP shows potassium now down to 3.4. CO2 remains quite low. After 6 L of normal saline fluid is switched to normal saline with 20 of potassium at a rate of 250 an hour. Sugar is down to 250 and insulin drip remains per protocol Consultation : Referral / Consult Name: Atif Hdez MD Call Returned at: 07:51 Machine Sneller: Agrees with eval, Agrees with plan Note: Dr. Hdez visits pt in the ED. Case discussed. Counseled Regarding: Diagnosis, Lab results, Need for admission Discharge & Departure Primary Impression: DKA (diabetic ketoacidoses) Diabetes mellitus type: type 1 Diabetes mellitus complication detail: without coma Qualified Code: E10.10 - Type 1 diabetes mellitus with ketoacidosis without coma Additional Impressions: Sinusitis Sinusitis location: unspecified location Chronicity: unspecified Qualified Code: J32.9 - Chronic sinusitis, unspecified Type 1 diabetes mellitus Diabetes mellitus complication status: with unspecified complications Qualified Code: E10.8 - Type 1 diabetes mellitus with unspecified complications Disposition: ADMITTED TO HOSPITAL Discharge Condition All VS Reviewed: Yes Condition: Stable Referrals: [facility] ([facility]) Scribe Attestation Portion of this note were transcribed by Eve Arita. I, Dr. Kimberly Aguilera, personally performed the history, physical exam, and medical decision-making: I reviewed and confirmed the accuracy for the information in the transcribed note. Signed by: urvashi Haines, 09/20/16 0900 copies to: [facility] Kimberly Aguilera MD September 20, 2016 06:06 Eve Arita September 20, 2016 06:09
--- NOTE | 2016-09-20 06:22 | ABG ---
DateTimeAnalyzed 06:18:00 -_ pH ____7.155 - 7.350 7.450 pCO2 ___13.0__ -mmHg 35.0 45.0 pO2 132 -mmHg 69.0 116 HCO3- ____4.4__ -mmol/L 22.0 26.0 ABE __-23.8__ -mmol/L -2.0 2.0 tHb ___14.2__ -g/dL O2Hb ___95.3__ -% COHb ____1.4__ -% MetHb ____0.9__ -% sO2 ___97.5__ -% FIO2 ___21.0__ -% Drawn By LT - Date/Time Notified____ 06:21:00 -_ Notified By LT - Notified Whom DR LAURSEN - B 757 -mmHg tO2 ___19.2__ -Vol% OrderingPhysicianInitials sl - David test _Positive -
[2016-09-20] MEDS ORDERED: Sodium Bicarb (50 mEq) 8.4% 1 mEq/mL 50 mL Syringe IVPUSH ONE (06:35)
[2016-09-20] MEDS ORDERED: 0.9% Sodium Chloride 1,000 ML IV STA ×2 (06:58→07:56)
[2016-09-20] MEDS ORDERED: LidocaineVisc 2%:Antacid 1:1 10 mL Syringe PO STA (07:02)
[2016-09-20] MEDS ORDERED: Insulin Human REGular Inj 100 UNIT in 0.9% Sodium Chloride-Pha MIX 100 ML IV ONE (07:25)
[2016-09-20] MEDS ORDERED: Ondansetron 2 mg/mL 2 mL Inj ONE (09:28)
[2016-09-20] MEDS ORDERED: Senna-Docusate 8.6-50 mg Tablet PO PRN (11:45)
[2016-09-20] MEDS ORDERED: Polyethylene Glycol (PEG) 17 Gm Powder PO PRN (11:45)
[2016-09-20] MEDS ORDERED: Alum-Mag Hydrox-Simeth 30 mL Suspension PO PRN (11:45)
[2016-09-20] MEDS ORDERED: Ondansetron 2 mg/mL 2 mL Inj IVPUSH PRN (11:45)
[2016-09-20 12:09] LABS: Magnesium 1.4 mg/dL (1.6-2.6)
[2016-09-20] MEDS: 0.9% NaCl + KCl 20 mEq/L 1,000 ML IV SCH ×3 (12:16→20:30)
[2016-09-20] MEDS ORDERED: D5W1/2NS 1,000 mL IV PRN (16:15)
[2016-09-20] MEDS ORDERED: Dextrose 10% 250 ML IV PRN (16:35)
--- NOTE | 2016-09-20 17:30 | PCM.HPMED ---
Subjective Date of Service September 20, 2016 Primary Provider: Admitting Physician: Primary Care Physician: Ivon Vidales Attending Physician: Admit Status: From the Emergency Department Chief Complaint: High blood sugar, out of home medication. History of Present Illness: Ms. Raman is a 20-year-old lady with a history of diabetes type 1 and diabetic ketoacidosis who presented to the emergency department with high blood sugar because she ran out of her insulin. Patient moved to the area earlier this year and has been attending [facility]. She states that she recently started a new job which has made monitoring her blood sugar more difficult. She also states that she has not been as consistent with insulin lately and is unsure whether she took her Lantus last night. She admits to poorly controlling her diabetes when she was in her early teens and reports 5-6 prior admission for DKA. Including admission here in February and March of 2016 and July of this year for DKA. Of note, patient has a history of transiently elevated liver enzymes in the past with evidence of steatohepatitis on abdominal ultrasound. She has no known history of liver disease or gallstones. She denies alcohol ingestion. In the ED, vitals were temp vitals 36.0, BP 137/79, HR 130, RR 25, SpO2 100% on room air. Labs: serum glucose was 941, sodium 125, and potassium was 4.9. Anion Gap-38.0 meq/L. ABG ph7.155, pCO2 13.0, pO2 132, HCO3 4.4; wbc 11.2, Hb 16.1, Hct 48.6, plts 467. AST/ALT 183/110 with alk phos 291, lipase 21, lactic acid 1.7. ECG sinus rhythm, rate 134. Nonspecific T abnormalities. She was given 6L of normal saline, started on insulin drip and admitted to the CCU on DKA protocol. Review of Systems: A comprehensive review of systems was conducted with the patient and found to be negative except as above in the History of Present Illness. Allergies Coded Allergies: lactose (Verified Adverse Reaction, Intermediate, 09/20/16) Home Medications Insulin Aspart (NovoLOG) 15-20 UNIT SUBQ TIDAC Insulin Glargine 43 UNIT SUBQ QPM Calcium Carbonate/Simethicone PO BID PRN Metoclopramide 10 MG PO QID PRN PMH Diabetes mellitus, type 1- dx at 9 years old History of DKA Depression Transient elevation of liver function tests. Surgical History Knee surgery Family History Positive for type 1 diabetes. Social History Hx Alcohol Use: No Hx Substance Use: Yes (occ marijuana use) Smoking Status: Former Smoker Living Arrangement: with Family Exam Vital Signs Vital Sign - Last Date Time Temp Pulse Resp B/P Pulse Ox O2 Delivery O2 Flow Rate FiO2 09/20/16 09:55 130 21 135/20 100 Room Air 09/20/16 04:51 36.0 Intake and Output 09/19/16 09/19/16 09/20/16 Cumulative From/Thru 15:00 23:00 07:00 09/20/16 04:51 - 09/20/16 05:19 Intake Total 1000 ml 1000 ml Balance 1000 ml 1000 ml Intake IV Total 1000 ml 1000 ml Exam GENERAL: Well appearing, young female; lying in bed in no acute distress. HEENT: Atraumatic, Normocephalic, PERRL, no scleral icterus. Mucous membranes moist. NECK: Supple, nontender, no lymphadenopathy or masses. RESPIRATORY: Breath sounds normal, no signs of respiratory distress, lungs clear to auscultation. CARDIOVASCULAR: Regular rate and rhythm without murmurs, rubs or gallops heard. ABDOMEN: Soft, nondistended, nontender, bowel tones active. EXTREMITIES: Non-tender, no obvious deformity, no edema, cyanosis or pallor. SKIN: Warm, dry without obvious rashes or ulcers. NEUROLOGIC: Alert and oriented x3, no focal neurologic deficit. PSYCHIATRIC: Normal mood/affect, appropriately interactive. Behavior normal. Lab and Diagnostics Labs Laboratory Tests Test 09/20/16 05:15 White Blood Count 11.2th/mm3 (3.8-10.1) Red Blood Count 5.31mil/mm3 (3.90-5.20) Hemoglobin 16.1g/dL (12.0-15.6) Hematocrit 48.6% (35.0-46.0) Mean Corpuscular Volume 91.5fL (81-100) Mean Corpuscular Hemoglobin 30.3pg (27.0-35.0) Mean Corpuscular Hemoglobin Concent 33.1% (32.0-37.0) Red Cell Distribution Width 12.8% (12.3-15.4) Platelet Count 467bil/L (150-400) Neutrophils (%) (Auto) 72.5% (40-74) Lymphocytes (%) (Auto) 17.0% (14-46) Monocytes (%) (Auto) 6.9% (4-12) Eosinophils (%) (Auto) 1.6% (0-5) Basophils (%) (Auto) 1.7% (0-3) Prothrombin Time 9.6sec (8.1-12.5) Prothromb Time International Ratio 0.90ratio Urine Color Straw (YELLOW) Urine Appearance Clear (CLEAR,HAZY) Urine pH 5.0 (5.0-8.0) Urine Specific [place] 1.010 (1.003-1.035) Urine Protein Negativemg/dL (NEG,TRACE) Urine Glucose (UA) >1000mg/dL (NEGATIVE) Urine Ketones >80mg/dL (NEGATIVE) Urine Occult Blood Negative (NEGATIVE) Urine Nitrite Negative (NEGATIVE) Urine Bilirubin Negative (NEGATIVE) Urine Urobilinogen Normalmg/dL (NORMAL) Urine Leukocyte Esterase Negative (NEGATIVE) Urine RBC 0-2/hpf (0-2) Urine WBC 0-5/hpf (0-5) Urine Epithelial Cells Few/hpf (NONE-MOD) Urine Crystals None seen (NONE SEEN) Urine Bacteria Few/hpf (NONE-FEW) Urine Hyaline Casts None/lpf (NONE) Urine Granular Casts None seen (NONE SEEN) Urine Waxy Casts None seen (NONE SEEN) Urine Red Blood Cell Casts None seen (NONE SEEN) Urine White Blood Cell Casts None seen (NONE SEEN) Urine Mucus Present (None Seen) Urine Trichomonas None seen (NONE SEEN) Urine Yeast None (NONE SEEN) Urinalysis Comment None Urine Culture Reflexed Not indicated Hold Urine Received (Received) Sodium Level 125mEq/L (134-144) Potassium Level 4.9mEq/L (3.5-5.2) Chloride Level 78mEq/L (97-108) Carbon Dioxide Level 9mmol/L (18-29) Blood Urea Nitrogen 16mg/dL (6-20) Creatinine 0.65mg/dL (0.57-1.00) Estimat Glomerular Filtration Rate 168mL/min (>59) Glucose Level 941mg/dL (60-99) Lactic Acid Level 1.7mmol/L (0.4-2.0) Calcium Level 9.8mg/dL (8.5-10.1) Magnesium Level 2.1mg/dL (1.6-2.6) Total Bilirubin 1.9mg/dL (0.0-1.2) Aspartate Amino Transf (AST/SGOT) 183U/L (0-50) Alanine Aminotransferase (ALT/SGPT) 110U/L (0-32) Alkaline Phosphatase 291U/L (25-150) Total Protein 8.3g/dL (6.4-8.4) Albumin 4.4g/dL (3.4-5.0) Lipase 21U/L (13-60) Ketones Positive (Negative) Result Diagram: 09/20/1651409/20/16514 Microbiology 09/20/16 Blood Culture- pending. Additional Diagnostics: DateTimeAnalyzed 06:18:00 -_ pH ____7.155 - 7.350 7.450 pCO2 ___13.0__ -mmHg 35.0 45.0 pO2 132 -mmHg 69.0 116 HCO3- ____4.4__ -mmol/L 22.0 26.0 ABE __-23.8__ -mmol/L -2.0 2.0 tHb ___14.2__ -g/dL O2Hb ___95.3__ -% COHb ____1.4__ -% MetHb ____0.9__ -% sO2 ___97.5__ -% FIO2 ___21.0__ -% Drawn By LT - Date/Time Notified____ 06:21:00 -_ Notified By LT - Notified Whom DR LAURSEN - B 757 -mmHg tO2 ___19.2__ -Vol% OrderingPhysicianInitials sl - David test _Positive - Assessment & Plan Ms. Raman is a 20-year-old otherwise healthy female with diabetes mellitus type 1 who presented to the emergency department with high blood sugar because she was out of her medications. Admitted to CCU for diabetic ketoacidosis. Diabetic Ketoacidosis, present on admission. Active -Likely secondary to insulin noncompliance, no evidence indicative of infection at time of admission. -Patient was diagnosed with DM type 1 at age 9 and reports 5-6 prior hospitalizations for DKA, which were primarily when she was in [place] and admits to poorly controlling her diabetes. -Initial glucose was 941, Anion Gap 38.0, Bicarb 9. ABG reveals metabolic acidosis pH 7.115, pCO2 13.0, pO2 132, HCO3 4.4. -Admitted to CCU on DKA protocol -NS 6L; then NS at 100ml/hr -BMP q4h; repletion protocol per DKA protocol -Will transition to pt's home insulin after resolution of DKA Elevated liver enzymes. Present on admission. Active. -Uncertain etiology or chronicity. Patient notes history of transiently elevated liver enzymes in the past. US on 03/22/16 with evidence of steatohepatitis. Patient denies alcohol use. -Hepatitis panel- negative on 07/24/16. -Monitor CMP Severe volume depletion, acute. Present on admission. Improving. -Secondary to DKA. Patient received 6 liters of normal saline in the emergency department. -Will continue normal saline at 200mls/hr. Diabetes mellitus, type 1. chronic. Present on admission. Active. -Continue fluid resuscitation -Will transition to subq when anion gap closes PRN: Acetaminophen-fever/headache/mild/moderate pain Antiemetics, as needed Bowel regimen, as needed. Disposition: Patient admitted under observation status with expected length of stay < 2 midnights for severity of present symptoms and complexities of treatment plan. Pain Evaluation: Adequate Pain Control VTE Prophylaxis: Sub-Q Heparin (Unfractionated) Resuscitation Status: CPR: Attempt Resuscitation Attending Statement The patient was seen and examined together with Dr. Irving on 09/20/2016 and I agree with the history, exam and plan as outlined in the note above. . Iris Irving DO September 20, 2016 10:00 Atif Hdez MD September 21, 2016 16:44
[2016-09-20 17:49] LABS: Phosphorus 2.3 mg/dL (2.5-4.9)
--- NOTE | 2016-09-20 17:52 | NUR ---
ADMIT TO CCU Report received from SREEKANTH Baxter in ED. Patient arrived to unit in stable condition at 1515, on DKA protocol. Blood sugar upon arrival was 87, so insulin held until blood sugar stabilized. Repeat CMP drawn at 1700, awaiting results to calculate anion gap, and patient states she is feeling much better, and ready to eat. Will continue to monitor blood sugars until anion gap closed, and patient is transitioned to subcutaneous insulin and PO intake.
[2016-09-21] MEDS: 0.9% NaCl + KCl 20 mEq/L 1,000 ML IV SCH ×7 (00:25→22:01)
[2016-09-21] MEDS ORDERED: Calcium GLUCO 10% (Gm) Inj 1 GM in 0.9% Sodium Chloride 50 ML IV ONE (01:55)
[2016-09-21] MEDS ORDERED: KCl 40 mEq/500 mL D5W(K 3 - 3.7 & Creat < 2) IV ONE (02:00)
[2016-09-21] MEDS ORDERED: Mag Sulf 4 Gm/100 mL IV Premix (Mag < 1.6 & Creat < 2) IV ONE (02:00)
[2016-09-21 03:28] VITALS: BP 110/62; PULSE 97; RESP 17; O2SAT 94
[2016-09-21 05:54] LABS: BASOPHILS % (AUTO) 1.8 % (0-3); MONOCYTES % (AUTO) 7.9 % (4-12); Mean Corpuscular Volume 87.4 fL (81-100); NEUTROPHILS % (AUTO) 53.7 % (40-74); Platelet Count 283 bil/L (150-400)
--- NOTE | 2016-09-21 06:18 | NUR ---
DKA Patient remains on DKA protocol. Anion gap 19, 17, and 15. AM lab redraw was ordered as numbers do no seem appropriate with trends and finger poke and pediatric tube were used instead of a vein. Potassium rider on hold. Patient requesting food and is educated on why she must wait to eat. Calcium, Magnesium, and Potassium all replaced during night. MD notified of positive blood culture called by lab, no new orders. MRSA swab sent. Maintenance fluid infusing at 250ml/hr. Insulin gtt infusing. Patient denies discomfort.
[2016-09-21 07:31] VITALS: BP 122/88; PULSE 112; RESP 18; O2SAT 97
[2016-09-21] MEDS ORDERED: Insulin Human REGular Inj 100 UNIT in 0.9% Sodium Chloride-Pha MIX 100 ML IV ONE ×2 (07:50→19:30)
[2016-09-21 08:29] LABS: Phosphorus 2.2 mg/dL (2.5-4.9)
[2016-09-21] MEDS ORDERED: Potassium Phosphate 500 mg Tablet PO ONE (09:05)
[2016-09-21] MEDS ORDERED: Insulin GLARgine 100 Unit/mL Syringe SUBQ ONE (11:55)
[2016-09-21 12:00] VITALS: BP 120/84; PULSE 106; RESP 18; O2SAT 99
[2016-09-21] MEDS: Amoxicillin-Clav 875-125 mg Tablet PO SCH ×2 (12:54→21:22)
[2016-09-21] MEDS ORDERED: Glucose 40% Oral Gel 15 Gm Tube PO PRN (13:35)
[2016-09-21] MEDS: Insulin LISPRO 300 Unit/3 mL Inj SUBQ SCH ×3 (16:38→22:00)
[2016-09-21] MEDS ORDERED: Insulin LISPRO 300 Unit/3 mL Inj SUBQ SCH ×2 (17:00→17:30)
[2016-09-21 17:06] VITALS: BP 129/90; PULSE 96; RESP 18; O2SAT 100
--- NOTE | 2016-09-21 18:05 | PCM.PNMED ---
Subjective Date of Service September 21, 2016 Subjective Ms. Rmaan is a 20-year-old otherwise healthy female with diabetes mellitus type 1 who presented to the emergency department with high blood sugar because she was out of her medications. Admitted for diabetic ketoacidosis. Patient remained on DKA protocol overnight, with steady decrease in anion gap and calcium, Magnesium, and Potassium replaced. Today blood culture is positive for gram positive cocci and MRSA sent. Patient states that she is tired and would like to eat. She reports sinus congestion for the past 5-6 days but otherwise is without complaint and states that she feels much than she did when she came in. She denies abdominal pain, nausea, vomiting, shortness of breath, chest pain Exam Vital Signs Vital Sign - Last Date Time Temp Pulse Resp B/P Pulse Ox O2 Delivery O2 Flow Rate FiO2 09/21/16 03:28 36.6 97 17 110/62 94 Mechanical Ventilator Intake and Output 09/20/16 09/20/16 09/21/16 Cumulative From/Thru 15:00 23:00 07:00 09/20/16 04:51 - 09/21/16 05:52 Intake Total 5000 ml 3139 ml 4850 ml 30737 ml Output Total 2500 ml 1200 ml 3625 ml 7325 ml Balance 2500 ml 1939 ml 1225 ml 6664 ml Intake Oral 400 ml 400 ml 800 ml IV Total 5000 ml 2739 ml 4450 ml 71508 ml Output Urine Total 1900 ml 1200 ml 3625 ml 6725 ml Other 600 ml 600 ml # Voids 5 5 # Bowel Movements 0 0 Exam GENERAL: Well appearing, young female; lying in bed in no acute distress. HEENT: Atraumatic, Normocephalic, PERRL, no scleral icterus. Mucous membranes moist. NECK: Supple, nontender, no lymphadenopathy or masses. RESPIRATORY: Breath sounds normal, no signs of respiratory distress, lungs clear to auscultation. CARDIOVASCULAR: Regular rate and rhythm without murmurs, rubs or gallops heard. ABDOMEN: Soft, nondistended, nontender, bowel tones active. EXTREMITIES: Non-tender, no obvious deformity, no edema, cyanosis or pallor. SKIN: Warm, dry without obvious rashes or ulcers. NEUROLOGIC: Alert and oriented x3, no focal neurologic deficit. PSYCHIATRIC: Normal mood/affect, appropriately interactive. Behavior normal. IVs and Medications Medications Reviewed: Medications were reviewed in detail Lab and Diagnostics Laboratory Tests Test 09/20/16 20:30 09/21/16 00:56 09/21/16 05:10 09/21/16 07:05 Sodium Level 140mEq/L (134-144) 139mEq/L (134-144) 137mEq/L (134-144) Potassium Level 3.7mEq/L (3.5-5.2) 3.4mEq/L (3.5-5.2) 5.2mEq/L (3.5-5.2) Chloride Level 105mEq/L (97-108) 106mEq/L (97-108) 108mEq/L (97-108) Carbon Dioxide Level 16mmol/L (18-29) 16mmol/L (18-29) 14mmol/L (18-29) Blood Urea Nitrogen 3mg/dL (6-20) 2mg/dL (6-20) 2mg/dL (6-20) Creatinine 0.36mg/dL (0.57-1.00) 0.35mg/dL (0.57-1.00) 0.29mg/dL (0.57-1.00) Estimat Glomerular Filtration Rate 333mL/min (>59) 344mL/min (>59) 427mL/min (>59) Glucose Level 141mg/dL (60-99) 123mg/dL (60-99) 118mg/dL (60-99) Calcium Level 6.4mg/dL (8.5-10.1) 6.3mg/dL (8.5-10.1) 6.5mg/dL (8.5-10.1) White Blood Count 8.3th/mm3 (3.8-10.1) Red Blood Count 4.61mil/mm3 (3.90-5.20) Hemoglobin 14.3g/dL (12.0-15.6) Hematocrit 40.3% (35.0-46.0) Mean Corpuscular Volume 87.4fL (81-100) Mean Corpuscular Hemoglobin 31.0pg (27.0-35.0) Mean Corpuscular Hemoglobin Concent 35.5% (32.0-37.0) Red Cell Distribution Width 12.6% (12.3-15.4) Platelet Count 283bil/L (150-400) Neutrophils (%) (Auto) 53.7% (40-74) Lymphocytes (%) (Auto) 30.0% (14-46) Monocytes (%) (Auto) 7.9% (4-12) Eosinophils (%) (Auto) 6.0% (0-5) Basophils (%) (Auto) 1.8% (0-3) Total Bilirubin 0.5mg/dL (0.0-1.2) Aspartate Amino Transf (AST/SGOT) 157U/L (0-50) Alanine Aminotransferase (ALT/SGPT) 72U/L (0-32) Alkaline Phosphatase 161U/L (25-150) Total Protein 5.3g/dL (6.4-8.4) Albumin 2.7g/dL (3.4-5.0) Phosphorus Level 2.2mg/dL (2.5-4.9) Magnesium Level 2.0mg/dL (1.6-2.6) Test 09/21/16 07:20 09/21/16 15:07 Sodium Level 138mEq/L (134-144) 133mEq/L (134-144) Potassium Level 3.8mEq/L (3.5-5.2) 4.6mEq/L (3.5-5.2) Chloride Level 106mEq/L (97-108) 98mEq/L (97-108) Carbon Dioxide Level 16mmol/L (18-29) 13mmol/L (18-29) Blood Urea Nitrogen < 2mg/dL (6-20) 2mg/dL (6-20) Creatinine 0.30mg/dL (0.57-1.00) 0.37mg/dL (0.57-1.00) Estimat Glomerular Filtration Rate 411mL/min (>59) 322mL/min (>59) Glucose Level 153mg/dL (60-99) 405mg/dL (60-99) Calcium Level 6.5mg/dL (8.5-10.1) 7.1mg/dL (8.5-10.1) Phosphorus Level 2.7mg/dL (2.5-4.9) Result Diagram: 09/21/16 0510 09/21/16 0510 Microbiology 09/20/16 Blood Culture - positive for gram positive cocci. 09/21/16 MRSA (PCR) - negative. Additional Diagnostics DateTimeAnalyzed 06:18:00 -_ pH ____7.155 - 7.350 7.450 pCO2 ___13.0__ -mmHg 35.0 45.0 pO2 132 -mmHg 69.0 116 HCO3- ____4.4__ -mmol/L 22.0 26.0 ABE __-23.8__ -mmol/L -2.0 2.0 tHb ___14.2__ -g/dL O2Hb ___95.3__ -% COHb ____1.4__ -% MetHb ____0.9__ -% sO2 ___97.5__ -% FIO2 ___21.0__ -% Drawn By LT - Date/Time Notified____ 06:21:00 -_ Notified By LT - Notified Whom DR LAURSEN - B 757 -mmHg tO2 ___19.2__ -Vol% OrderingPhysicianInitials sl - David test _Positive - Assessment & Plan Ms. Raman is a 20-year-old otherwise healthy female with diabetes mellitus type 1 who presented to the emergency department with high blood sugar because she was out of her medications. Admitted to CCU for diabetic ketoacidosis. Diabetic Ketoacidosis, present on admission. Resolved. -Likely secondary to insulin noncompliance and possibly infection. Blood culture positive for gram positive cocci. -Initial glucose was 941, Anion Gap 38.0, Bicarb 9. ABG revealed metabolic acidosis pH 7.115, pCO2 13.0, pO2 132, HCO3 4.4. -She was admitted to CCU and DKA protocol continued overnight with BMP q4h, with replacement of calcium, potassium, and magnesium -Fluid resuscitation: received 6L of normal saline; then NS at 200mls/hr. -Anion gap closed, patient transitioned to subq insulin, overlap 1-2hrs with insulin drip. Elevated liver enzymes. Present on admission. Improving -Uncertain etiology or chronicity. Patient notes history of transiently elevated liver enzymes in the past. US on 03/22/16 with evidence of steatohepatitis. Patient denies alcohol use. -Hepatitis panel- negative on 07/24/16. -Monitor CMP Severe volume depletion, acute. Present on admission. Resolved. -Secondary to DKA. Patient received 6 liters of normal saline in the emergency department. -Stop IV fluids, advance diet and subq insulin as above. Diabetes mellitus, type 1. chronic. Present on admission. Active. -HbA1c 11.2 -Transition to subq home insulin -Correctional insulin lispro ordered. PRN: Acetaminophen-fever/headache/mild/moderate pain Antiemetics, as needed Bowel regimen, as needed. Disposition: Patient will likely discharge home in 1-2 days pending further monitoring of labs now that she is eating and back on her home insulin regimen. Pain Evaluation: Adequate Pain Control VTE Prophylaxis: Sub-Q Heparin (Unfractionated) Resuscitation Status: CPR: Attempt Resuscitation Attending Statement The patient was seen and examined together with Dr. Irving on 09/21/2016 and I agree with the history, exam and plan as outlined in the note above. . Iris Irving DO September 21, 2016 07:01 Atif Hdez MD September 22, 2016 07:43
--- NOTE | 2016-09-21 18:44 | PCM.PNMED ---
Subjective Date of Service September 21, 2016 BRIEF PROGRESS NOTE, please see previous progress note for additional details. Assessment & Plan Ms. Raman is a 20-year-old otherwise healthy female with diabetes mellitus type 1 who presented to the emergency department with high blood sugar because she was out of her medications. Transferred back to CCU for diabetic ketoacidosis. Diabetic Ketoacidosis, present on admission. Active. -Likely secondary to insulin noncompliance and possibly infection. Blood culture positive for gram positive cocci. Patient reports sinus congestion for past 5-6 days. -She was admitted to CCU on 09/19 on DKA protocol. BMPs monitored q4h. Initial glucose was 941, Anion Gap 38.0, Bicarb 9. ABG revealed metabolic acidosis pH 7.115, pCO2 13.0, pO2 132, HCO3 4.4. -Fluid resuscitated with 6L of normal saline; then NS at 200mls/hr. -Anion gap was 15 morning of 09/21. Patient transferred out of CCU, started on a diet and transitioned to subq insulin. -Afternoon labs with anion gap back up to 22, glucose 405. -Patient asymptomatic but transferred back to CCU for close monitoring, until anion gap closes. -BMP q4h, repletion per DKA protocol. . Pain Evaluation: Adequate Pain Control VTE Prophylaxis: Sub-Q Heparin (Unfractionated) Resuscitation Status: CPR: Attempt Resuscitation Attending Statement The patient was seen and examined together with Dr. Irving on 09/21/2016 and I agree with the history, exam and plan as outlined in the note above. . Iris Irving DO September 21, 2016 18:44 Atif Hdez MD September 22, 2016 07:43 7.115, pCO2 13.0, pO2 132, HCO3 4.4. -Fluid resuscitated with 6L of normal saline; then NS at 200mls/hr. -Anion gap was 15 morning of 09/21. Patient transferred out of CCU, started on a diet and transitioned to subq insulin. -Afternoon labs with anion gap back up to 22, glucose 405. -Patient asymptomatic but transferred back to CCU for close monitoring, until anion gap closes. -BMP q4h, repletion per DKA protocol. VTE Prophylaxis: Sub-Q Heparin (Unfractionated) Resuscitation Status: CPR: Attempt Resuscitation Iris Irving DO September 21, 2016 18:44
[2016-09-21] MEDS ORDERED: D5W1/2NS 1,000 mL IV PRN (19:30)
[2016-09-21] MEDS ORDERED: Dextrose 10% 250 ML IV PRN ×2 (19:30)
--- NOTE | 2016-09-21 19:35 | NUR ---
BG/ Correctional insulin/DKA: P: @ 1620 YH=385 I: MD was notified and clarified Humalog Insulin dose. Low dose insulin algorithm was changed to high dose algorithm. Administered 32 total units of Humalog ( nutritional 20 and correctional 12). E: @ 1750 BG= 293. MD notified. reviewed labs and anion gap had increased to 22. New orders to restart DKA protocol again were received. Report given to STARR STACK.
[2016-09-21 20:00] VITALS: BP 133/84; PULSE 108; RESP 18; O2SAT 100
--- NOTE | 2016-09-21 22:35 | NUR ---
blood glucose/DKA pts BG was 100 called MD had STAT BMP ordered anion gap still at 20 retook BG was 85 followed the DKA protocol. didn't start the insulin gtt until BG was 145 see flow sheet
[2016-09-22] VITALS: BP 131/86; PULSE 103; RESP 16; O2SAT 99
--- NOTE | 2016-09-22 03:15 | NUR ---
pain pt c/o pain in her left shoulder to neck area unsure if its from stress or sleeping on it wrong, got an order for PO tylenol and K-pad pt stating her pain i "barely there"
[2016-09-22 04:00] VITALS: BP 129/84; PULSE 101; RESP 16; O2SAT 97
[2016-09-22] MEDS: 0.9% NaCl + KCl 20 mEq/L 1,000 ML IV SCH ×2 (05:03→11:45)
[2016-09-22 05:42] LABS: BASOPHILS % (AUTO) 1.9 % (0-3); EOSINOPHILS % (AUTO) 7.3 % (0-5); MONOCYTES % (AUTO) 9.2 % (4-12); Mean Corpuscular Hemoglobin 31.1 pg (27.0-35.0); Mean Corpuscular Volume 88.4 fL (81-100); NEUTROPHILS % (AUTO) 39.9 % (40-74); Platelet Count 309 bil/L (150-400)
--- NOTE | 2016-09-22 06:18 | NUR ---
blood glucose pts BG well controlled through the night highest was 150 and that was one time, pt was mostly 110s, pts anion gap this morning 14 pagesteven TAMEZ.
[2016-09-22 06:55] LABS: Magnesium 1.9 mg/dL (1.6-2.6); Phosphorus 2.9 mg/dL (2.5-4.9)
[2016-09-22] MEDS ORDERED: Potassium Chloride 20 mEq SR Tablet PO ONE (09:15)
[2016-09-22 09:35] VITALS: BP 121/76; PULSE 94; RESP 16; O2SAT 97
--- NOTE | 2016-09-22 09:57 | PCM.PNMED ---
Subjective Date of Service September 22, 2016 Subjective Ms. Raman is a 20-year-old otherwise healthy female with diabetes mellitus type 1 who presented to the emergency department with high blood sugar because she was out of her medications. Admitted for diabetic ketoacidosis. Patient transitioned to subcutaneous insulin yesterday (09/21) afternoon and anion gap on repeat labs back up to 22. She was transferred back to the CCU and restarted on DKA protocol. Per nursing, blood glucose was well controlled overnight with a high of 150 and anion gap this morning is 14. This morning patient states that she is feeling much better and her sinus congestion is also improving. She states that she is hungry and would like to eat. She denies shortness of breath, chest pain, nausea, vomiting, diarrhea, constipation or urinary symptoms. Exam Vital Signs Vital Sign - Last Date Time Temp Pulse Resp B/P Pulse Ox O2 Delivery O2 Flow Rate FiO2 09/22/16 04:00 36.8 101 16 129/84 97 Room Air Intake and Output 09/21/16 09/21/16 09/22/16 Cumulative From/Thru 15:00 23:00 07:00 09/20/16 04:51 - 09/22/16 06:27 Intake Total 3439 ml 3190 ml 85555 ml Output Total 3800 ml 2350 ml 33788 ml Balance -361 ml 840 ml 7143 ml Intake Oral 1440 ml 100 ml 2340 ml IV Total 1999 ml 3090 ml 93626 ml Output Urine Total 3800 ml 2350 ml 73186 ml Other 600 ml # Voids 5 # Bowel Movements 2 1 3 Exam GENERAL: Well appearing, young female; lying in bed in no acute distress. HEENT: Atraumatic, Normocephalic, PERRL, no scleral icterus. Mucous membranes moist. NECK: Supple, nontender, no lymphadenopathy or masses. RESPIRATORY: Breath sounds normal, no signs of respiratory distress, lungs clear to auscultation. CARDIOVASCULAR: Regular rate and rhythm without murmurs, rubs or gallops heard. ABDOMEN: Soft, nondistended, nontender, bowel tones active. EXTREMITIES: Non-tender, no obvious deformity, no edema, cyanosis or pallor. SKIN: Warm, dry without obvious rashes or ulcers. NEUROLOGIC: Alert and oriented x3, no focal neurologic deficit. PSYCHIATRIC: Normal mood/affect, appropriately interactive. Behavior normal. IVs and Medications Medications Reviewed: Medications were reviewed in detail Lab and Diagnostics Laboratory Tests Test 09/21/16 15:07 09/21/16 19:51 09/22/16 01:07 09/22/16 05:25 Sodium Level 133mEq/L (134-144) 138mEq/L (134-144) 136mEq/L (134-144) 141mEq/L (134-144) Potassium Level 4.6mEq/L (3.5-5.2) 4.0mEq/L (3.5-5.2) 3.5mEq/L (3.5-5.2) 3.5mEq/L (3.5-5.2) Chloride Level 98mEq/L (97-108) 101mEq/L (97-108) 100mEq/L (97-108) 104mEq/L (97-108) Carbon Dioxide Level 13mmol/L (18-29) 17mmol/L (18-29) 20mmol/L (18-29) 23mmol/L (18-29) Blood Urea Nitrogen 2mg/dL (6-20) 4mg/dL (6-20) 2mg/dL (6-20) 3mg/dL (6-20) Creatinine 0.37mg/dL (0.57-1.00) 0.34mg/dL (0.57-1.00) 0.42mg/dL (0.57-1.00) 0.30mg/dL (0.57-1.00) Estimat Glomerular Filtration Rate 322mL/min (>59) 355mL/min (>59) 278mL/min (>59) 411mL/min (>59) Glucose Level 405mg/dL (60-99) 123mg/dL (60-99) 139mg/dL (60-99) 140mg/dL (60-99) Calcium Level 7.1mg/dL (8.5-10.1) 7.6mg/dL (8.5-10.1) 7.3mg/dL (8.5-10.1) 7.4mg/dL (8.5-10.1) Phosphorus Level 2.7mg/dL (2.5-4.9) 2.9mg/dL (2.5-4.9) White Blood Count 4.8th/mm3 (3.8-10.1) Red Blood Count 4.47mil/mm3 (3.90-5.20) Hemoglobin 13.9g/dL (12.0-15.6) Hematocrit 39.5% (35.0-46.0) Mean Corpuscular Volume 88.4fL (81-100) Mean Corpuscular Hemoglobin 31.1pg (27.0-35.0) Mean Corpuscular Hemoglobin Concent 35.2% (32.0-37.0) Red Cell Distribution Width 12.6% (12.3-15.4) Platelet Count 309bil/L (150-400) Neutrophils (%) (Auto) 39.9% (40-74) Lymphocytes (%) (Auto) 41.3% (14-46) Monocytes (%) (Auto) 9.2% (4-12) Eosinophils (%) (Auto) 7.3% (0-5) Basophils (%) (Auto) 1.9% (0-3) Magnesium Level 1.9mg/dL (1.6-2.6) Total Bilirubin 0.3mg/dL (0.0-1.2) Aspartate Amino Transf (AST/SGOT) 309U/L (0-50) Alanine Aminotransferase (ALT/SGPT) 131U/L (0-32) Alkaline Phosphatase 183U/L (25-150) Total Protein 5.3g/dL (6.4-8.4) Albumin 2.6g/dL (3.4-5.0) Result Diagram: 09/22/16 0525 09/22/16 0525 Microbiology 09/20/16 Blood Culture - positive for gram positive cocci. 09/21/16 MRSA (PCR) - negative. Additional Diagnostics DateTimeAnalyzed 06:18:00 -_ pH ____7.155 - 7.350 7.450 pCO2 ___13.0__ -mmHg 35.0 45.0 pO2 132 -mmHg 69.0 116 HCO3- ____4.4__ -mmol/L 22.0 26.0 ABE __-23.8__ -mmol/L -2.0 2.0 tHb ___14.2__ -g/dL O2Hb ___95.3__ -% COHb ____1.4__ -% MetHb ____0.9__ -% sO2 ___97.5__ -% FIO2 ___21.0__ -% Drawn By LT - Date/Time Notified____ 06:21:00 -_ Notified By LT - Notified Whom DR LAURSEN - B 757 -mmHg tO2 ___19.2__ -Vol% OrderingPhysicianInitials sl - David test _Positive - Assessment & Plan Ms. Raman is a 20-year-old otherwise healthy female with diabetes mellitus type 1 who presented to the emergency department with high blood sugar because she was out of her medications. Admitted to CCU for diabetic ketoacidosis. Diabetic Ketoacidosis, present on admission. Resolved. -Likely secondary to insulin noncompliance and possibly infection. One of two blood cultures positive for gram positive cocci. Patient reports sinus congestion for past 5-6 days. -Patient admitted to CCU on 09/19 on DKA protocol. BMPs monitored q4h. Initial glucose was 941, Anion Gap 38.0, Bicarb 9. ABG revealed metabolic acidosis pH 7.115, pCO2 13.0, pO2 132, HCO3 4.4. -Fluid resuscitated with 6L of normal saline; then NS at 200mls/hr. -Anion gap was 15 on 09/21 and patient transferred out of CCU, started on a diet and transitioned to subq insulin. -Transferred back to CCU evening of 09/21 after repeat labs showed an anion gap of 22, glucose 405. -Anion gap now 14, will transition to subq insulin, overlap 1-2hrs with insulin drip. -Monitor BMP, bedside glucose -Insulin glargine 40units -Insulin lispro 20units with meals; high-dose correctional Elevated liver enzymes. Present on admission. Active -Uncertain etiology or chronicity. Patient notes history of transiently elevated liver enzymes in the past. US on 03/22/16 with evidence of steatohepatitis. Patient denies alcohol use. -Hepatitis panel- negative on 07/24/16. -Monitor CMP -Recommend close outpatient followup, possible auto-immune workup Severe volume depletion, acute. Present on admission. Resolved. -Secondary to DKA. Patient received 6 liters of normal saline in the emergency department. -Stop IV fluids, advance diet and subq insulin as above. Diabetes mellitus, type 1. chronic. Present on admission. Active. -HbA1c 11.2 -Transition to subq insulin, as above. Sinusitis, acute. Present on admission. Improving -Patient reports sinus congestion, pain and pressure for the past week. -Continue amoxicillin-clavulanate 875-125mg PRN: Antiemetics, as needed Bowel regimen, as needed. Disposition: Patient will likely discharge home in 1-2 days pending further monitoring of labs now that she is eating and back on her home insulin regimen. VTE Prophylaxis: Sub-Q Heparin (Unfractionated) Resuscitation Status: CPR: Attempt Resuscitation Attending Statement The patient was seen and examined together with Dr. Irving on 09/22/2016 and I agree with the history, exam and plan as outlined in the note above. . Iris Irving DO September 22, 2016 07:47 Atif Hdez MD September 22, 2016 12:13
[2016-09-22] MEDS: Amoxicillin-Clav 875-125 mg Tablet PO SCH (10:18)
[2016-09-22] MEDS: Insulin LISPRO 300 Unit/3 mL Inj SUBQ SCH ×2 (10:22→13:35)
--- NOTE | 2016-09-22 11:56 | NUR ---
Transition to SQ Patient started back on po . ate breakfast 0930. SQ humolog 20 units given concurrently with drip at 3.5 units insulin per hour.. Rechecked blood sugar an hour after breakfast patient was 130 at 1100 .IV insulin stopped. will recheck blood sugar at 1230 . Patient has ordered lunch. Vital signs stable.
[2016-09-22 12:30] VITALS: BP 132/88; PULSE 101; RESP 22; O2SAT 98
[2016-09-22] MEDS ORDERED: Insulin GLARgine 100 Unit/mL Syringe SUBQ ONE (13:00)
--- NOTE | 2016-09-22 14:24 | NUR ---
Social Work Note: Screen Note/Readiness for Discharge Data& Assessment: Gay Raman is a 20 year old female admitted on 09/20/2016 for DKA. Pt has [facility] Medicaid insurance coverage. Pt lives in [place] with family and is independent at baseline. SW met with pt at bedside to check in and assess for any unmet needs. Pt is ambulating independently in her room. Pt car is in the parking lot and she plans to drive herself home when medically ready. 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 Pt confirmed she does not have any issues with obtaining her medications otherwise. Pt denies any other needs. No other discharge needs identified. SW to continue to follow if any needs arise. Plan: Anticipated discharge home via POV when medically ready. Pt denies any other needs. No other discharge needs identified. SW to continue to follow if any needs arise. TREVON Lopez
--- NOTE | 2016-09-22 14:36 | PCM.DIMED ---
Iris Irving DO 09/22/16 1436: Discharge Instructions Date of Service September 22, 2016 Dates of Hospitalization September 20, 2016 at 13:54 Discharge Diagnosis Discharge Diagnosis Diabetic Ketoacidosis Elevated liver enzymes. Type 1, Diabetes mellitus Sinus infection Diet Diabetic (Reference for the book we discussed: 'Dr. Matos's Diabetes Solution' ) Activity No restrictions Call your provider Fever or Chills, Shortness of breath, Chest pain, Vomitting, Excessive diarrhea , Other (If you develop any new or worrisome symptoms contact your primary care provider. ) Patient Instructions It is important that you followup with your primary care provider to review your diabetes management and this hospital stay within the next 1-2 weeks. We recommend close follow not only for better management of your diabetes but also because your liver enzymes are abnormal and additional testing is indicated. . Follow-up plan -Followup with your primary care provider, Blu Mac in 1-2 weeks. It is important that you have additional testing done for your abnormal liver tests. Please discuss this and make arrangements with your primary care physician. -Recommend Endocrinology evaluation for your diabetes management. -Dr. Gerber Del Castillo [facility] -Endocrinology [address] [place] [address] . Follow-up Provider: [facility] Follow-up with PCP in: 2 weeks Atif Hdez MD 09/23/16 0750: Discharge Instructions Attending's Statement The patient was seen and examined together with Dr. Irving on 09/22/2016 and I agree with the history, exam and plan as outlined in the note above. . Iris Irving DO September 22, 2016 14:36 Atif Hdez MD September 23, 2016 07:50
[2016-09-22] MEDS ORDERED: AGM875T PO (14:40)
--- NOTE | 2016-09-22 15:13 | PCM.DC.MED ---
Discharge Summary Date of Service September 22, 2016 Dates of Hospitalization Date of Hospital Admission September 20, 2016 at 13:54 Date of Discharge: September 22, 2016 Providers: Admitting Physician: Atif Hdez MD Primary Care Physician: Ivon Vidales Attending Physician: Atif Hdez MD Diagnosis at Time of Discharge Diagnosis at Time of Discharge Diabetic ketoacidosis Elevated liver enzymes Severe volume depletion Type 1 Diabetes mellitus Acute sinusitis Procedures Other Diagnostics DateTimeAnalyzed 06:18:00 -_ pH ____7.155 - 7.350 7.450 pCO2 ___13.0__ -mmHg 35.0 45.0 pO2 132 -mmHg 69.0 116 HCO3- ____4.4__ -mmol/L 22.0 26.0 ABE __-23.8__ -mmol/L -2.0 2.0 tHb ___14.2__ -g/dL O2Hb ___95.3__ -% COHb ____1.4__ -% MetHb ____0.9__ -% sO2 ___97.5__ -% FIO2 ___21.0__ -% Drawn By LT - Date/Time Notified____ 06:21:00 -_ Notified By LT - Notified Whom DR LAURSEN - B 757 -mmHg tO2 ___19.2__ -Vol% OrderingPhysicianInitials sl - David test _Positive - Brief History Per admission history and physical on 09/20/16. Juan Delgado DO Ms. Raman is a 20-year-old lady with a history of diabetes type 1 and diabetic ketoacidosis who presented to the emergency department with high blood sugar because she ran out of her insulin. Patient moved to the area earlier this year and has been attending [facility]. She states that she recently started a new job which has made monitoring her blood sugar more difficult. She also states that she has not been as consistent with insulin lately and is unsure whether she took her Lantus last night. She admits to poorly controlling her diabetes when she was in her early teens and reports 5-6 prior admission for DKA. Including admission here in February and March of 2016 and July of this year for DKA. Of note, patient has a history of transiently elevated liver enzymes in the past with evidence of steatohepatitis on abdominal ultrasound. She has no known history of liver disease or gallstones. She denies alcohol ingestion. In the ED, vitals were temp vitals 36.0, BP 137/79, HR 130, RR 25, SpO2 100% on room air. Labs: serum glucose was 941, sodium 125, and potassium was 4.9. Anion Gap-38.0 meq/L. ABG ph7.155, pCO2 13.0, pO2 132, HCO3 4.4; wbc 11.2, Hb 16.1, Hct 48.6, plts 467. AST/ALT 183/110 with alk phos 291, lipase 21, lactic acid 1.7. ECG sinus rhythm, rate 134. Nonspecific T abnormalities. She was given 6L of normal saline, started on insulin drip and admitted to the CCU on DKA protocol. Hospital Course Ms. Raman is a 20-year-old otherwise healthy female with diabetes mellitus type 1 who presented to the emergency department with high blood sugar because she was out of her medications. Admitted to ICU for diabetic ketoacidosis. Diabetic Ketoacidosis, present on admission. Treated/Resolved. -Likely secondary to insulin noncompliance and possibly infection. Patient reports sinus congestion for past 5-6 days. -Patient admitted to CCU on 09/19 on DKA protocol and BMPs were monitored q4h. Initial glucose was 941, Anion Gap 38.0, Bicarb 9 and arterial blood gas revealed a metabolic acidosis pH 7.115, pCO2 13.0, pO2 132, HCO3 4.4. -Patient was fluid resuscitated with 6L of normal saline; then received maintenance fluid, normal saline at 200mls/hr. -Anion gap was 15 on 09/21 and patient transferred out of CCU, started on a diet and transitioned to subq insulin. -Patient was then transferred back to CCU evening of 09/21 after repeat labs showed an anion gap of 22, glucose 405. -Anion gap 14 on 09/22 and patient transitioned to home doses of subq insulin with an overlap of 2hrs with the insulin drip. Elevated liver enzymes. Present on admission. Presumed stable. -Uncertain etiology or chronicity. Patient notes history of transiently elevated liver enzymes in the past. US on 03/22/16 with evidence of steatohepatitis. Patient denied alcohol use. -Hepatitis panel was negative on 07/24/16. -Followed CMP and liver enzymes remained elevated. -Recommend close outpatient followup and possible auto-immune workup. Severe volume depletion, acute. Present on admission. Treate/Resolved. -Secondary to DKA. -Patient was fluid resuscitated and monitored as above. Diabetes mellitus, type 1. chronic. Present on admission. Uncontrolled. -HbA1c 11.2 on 09/20. Patient was continued on an insulin drip and BMP monitored every 2-4 hours and the following morning (hospital day 2, 09/21) the anion gap was closed and she was transitioned to subcutaneous insulin. On followup BMP the anion gap had increased back to 22 and she was transferred back to the ICU and DKA protocol resumed with patient NPO on an insulin drip. -Anion gap closed on morning of hospital day 3 (09/22) and patient again transitioned to subcutaneous home doses of insulin lispro and monitored for the afternoon. -Patient discharged in stable condition with bedside blood glucose in 90s to 120. She is to followup with her primary care physician in 1-2 weeks with possible referral to Endocrinology. Sinusitis, acute. Present on admission. Treated. -Patient reported persistent sinus congestion, pain and pressure for the past week. -Started amoxicillin-clavulanate 875-125mg on 09/21 and patient discharged with script to complete 5 day course of antibiotics. Exam Vital Signs (Last) Date Time Temp Pulse Resp B/P Pulse Ox O2 Delivery O2 Flow Rate FiO2 09/22/16 09:35 36.8 94 16 121/76 97 Room Air Exam GENERAL: Well appearing, young female; lying in bed in no acute distress. HEENT: Atraumatic, Normocephalic, PERRL, no scleral icterus. Mucous membranes moist. NECK: Supple, nontender, no lymphadenopathy or masses. RESPIRATORY: Breath sounds normal, no signs of respiratory distress, lungs clear to auscultation. CARDIOVASCULAR: Regular rate and rhythm without murmurs, rubs or gallops heard. ABDOMEN: Soft, nondistended, nontender, bowel tones active. EXTREMITIES: Non-tender, no obvious deformity, no edema, cyanosis or pallor. SKIN: Warm, dry without obvious rashes or ulcers. NEUROLOGIC: Alert and oriented x3, no focal neurologic deficit. PSYCHIATRIC: Normal mood/affect, appropriately interactive. Behavior normal. Test 09/20/16 05:15 09/20/16 10:40 09/20/16 17:18 09/22/16 05:25 Prothrombin Time 9.6sec (8.1-12.5) Prothromb Time International Ratio 0.90ratio Urine Color Straw (YELLOW) Urine Appearance Clear (CLEAR,HAZY) Urine pH 5.0 (5.0-8.0) Urine Specific [place] 1.010 (1.003-1.035) Urine Protein Negativemg/dL (NEG,TRACE) Urine Glucose (UA) >1000mg/dL (NEGATIVE) Urine Ketones >80mg/dL (NEGATIVE) Urine Occult Blood Negative (NEGATIVE) Urine Nitrite Negative (NEGATIVE) Urine Bilirubin Negative (NEGATIVE) Urine Urobilinogen Normalmg/dL (NORMAL) Urine Leukocyte Esterase Negative (NEGATIVE) Urine RBC 0-2/hpf (0-2) Urine WBC 0-5/hpf (0-5) Urine Epithelial Cells Few/hpf (NONE-MOD) Urine Crystals None seen (NONE SEEN) Urine Bacteria Few/hpf (NONE-FEW) Urine Hyaline Casts None/lpf (NONE) Urine Granular Casts None seen (NONE SEEN) Urine Waxy Casts None seen (NONE SEEN) Urine Red Blood Cell Casts None seen (NONE SEEN) Urine White Blood Cell Casts None seen (NONE SEEN) Urine Mucus Present (None Seen) Urine Trichomonas None seen (NONE SEEN) Urine Yeast None (NONE SEEN) Urinalysis Comment None Urine Culture Reflexed Not indicated Hold Urine Received (Received) Hemoglobin A1c 11.2% (4.8-5.6) Lactic Acid Level 1.7mmol/L (0.4-2.0) Lipase 21U/L (13-60) Ketones Positive (Negative) Prealbumin 17mg/dL (20-40) Osmolality 293 (275-300) Ionized Calcium 0.93mmol/L (1.17-1.32) White Blood Count 4.8th/mm3 (3.8-10.1) Red Blood Count 4.47mil/mm3 (3.90-5.20) Hemoglobin 13.9g/dL (12.0-15.6) Hematocrit 39.5% (35.0-46.0) Mean Corpuscular Volume 88.4fL (81-100) Mean Corpuscular Hemoglobin 31.1pg (27.0-35.0) Mean Corpuscular Hemoglobin Concent 35.2% (32.0-37.0) Red Cell Distribution Width 12.6% (12.3-15.4) Platelet Count 309bil/L (150-400) Neutrophils (%) (Auto) 39.9% (40-74) Lymphocytes (%) (Auto) 41.3% (14-46) Monocytes (%) (Auto) 9.2% (4-12) Eosinophils (%) (Auto) 7.3% (0-5) Basophils (%) (Auto) 1.9% (0-3) Sodium Level 141mEq/L (134-144) Potassium Level 3.5mEq/L (3.5-5.2) Chloride Level 104mEq/L (97-108) Carbon Dioxide Level 23mmol/L (18-29) Blood Urea Nitrogen 3mg/dL (6-20) Creatinine 0.30mg/dL (0.57-1.00) Estimat Glomerular Filtration Rate 411mL/min (>59) Glucose Level 140mg/dL (60-99) Calcium Level 7.4mg/dL (8.5-10.1) Phosphorus Level 2.9mg/dL (2.5-4.9) Magnesium Level 1.9mg/dL (1.6-2.6) Total Bilirubin 0.3mg/dL (0.0-1.2) Aspartate Amino Transf (AST/SGOT) 309U/L (0-50) Alanine Aminotransferase (ALT/SGPT) 131U/L (0-32) Alkaline Phosphatase 183U/L (25-150) Total Protein 5.3g/dL (6.4-8.4) Albumin 2.6g/dL (3.4-5.0) Microbiology Results 09/20/16 Blood Culture - one of four bottles positive for gram positive cocci ( coag neg staph). likely contaminate. 09/21/16 MRSA (PCR) - negative. Discharge Medications Discharge Medications Amoxicillin/Clav K 875-125 mg (Amoxicillin/Clav K 875-125 mg) 875 Mg Tab 1 TAB PO BID Prescribed by: JUAN DELGADO DO Insulin Aspart (NovoLOG U100 Insulin Vial) 100 Unit/Ml Mdv 15-20 UNIT SUBQ TIDAC Prescribed by: EL ORR MD Insulin Glargine (Lantus U100 Insulin Vial) 100 Unit/Ml Vial 43 UNIT SUBQ QPM ( Reported) Followup Plan Follow-up plan -Followup with your primary care provider, Blu Mac at the [facility] in 1-2 weeks. It is important that you have additional testing done for your abnormal liver tests. Please discuss this and make arrangements with your primary care physician. -Recommend Endocrinology evaluation for your diabetes management. -Dr. El Orr [facility]End[facility]in[facility] [address] [place] [address] . Discharge Diet: Diabetic (Reference for the book we discussed: 'Dr. Matos' s Diabetes Solution' ) Discharge Activity: No restrictions Patient Instructions It is important that you followup with your primary care provider to review your diabetes management and this hospital stay within the next 1-2 weeks. We recommend close follow not only for better management of your diabetes but also because your liver enzymes are abnormal and additional testing is indicated. . Follow-up Provider: [facility] Follow-up with PCP in: 2 weeks Time spent Greater than 30 minutes was spent in preparation of discharge with greater than 50% of that time dedicated to patient counseling and coordination of care. . Attending Statement The patient was seen and examined together with Dr. Delgado on 09/22/2016 and I agree with the history, exam and plan as outlined in the note above. . copies to: [facility] Juan Delgado DO September 22, 2016 14:50 Atif Hdez MD September 23, 2016 07:51
--- NOTE | 2016-09-22 17:05 | NUR ---
DISCHARGE TRANSITIONED PATIENT OFF INSULIN GTT AT BREAKFAST TIME. BLOOD SUGARS CHECKED HOURLY UNTIL 1400. PATIENT BS STAYED BETWEEN 100 AND 130. DISCHARGE ORDERS RECEIVED. DISCHARGE INSTRUCTIONS GONE OVER WITH PATIENT WHO VERBALIZED UNDERSTANDING. PRESCRIPTION GIVEN. VITAL SIGNS AND BLOOD SUGAR STABLE . PATIENT IV REMOVED INTACT WITHOUT INCIDENT. PATIENT AMBULATED OUT OF FACILITY .
== END 2016-09-22 15:16 | disposition home or self-care (01) | DRG 639 ==
LOC: SED 04:47 → INTOOBSV 13:54 → CCU 13:54 → OBSVTOIN 13:54 → CCU 15:04 → PCC 09-21 13:46 → CCU 09-21 17:24
PROVIDERS: ADMIT Internal Medicine; ATTEND Internal Medicine
PROC: 4A033B1 Measurement of Arterial Pressure, Peripheral, Percutaneous Approach (ICD-10-PCS; principal; 2016-09-20)
DX: E10.10 Type 1 diabetes mellitus with ketoacidosis without coma (principal); K75.81 Nonalcoholic steatohepatitis (NASH); J01.90 Acute sinusitis, unspecified; Z79.4 Long term (current) use of insulin; Z87.891 Personal history of nicotine dependence; Z91.14 Patient's other noncompliance with medication regimen